=== PATIENT | female | born 1965 | race Caucasian/White ===

== ENCOUNTER 2020-06-17 17:26 | Inpatient (IN) | payer OTHER ==
[~2020-06-17] VITALS: Ht 170.2 cm; Wt 114.8 kg
[2020-06-17 17:29] VITALS: BP 177/111
[2020-06-17 18:02] LABS: ABSOLUTE NEUTROPHILS 6.6 thou/uL (1.4-8.2); BASOPHILS 0.6 % (0.0-2.0); EOSINOPHILS 1.3 % (0.0-3.0); HEMATOCRIT 40.4 % (37.0-47.0); HEMOGLOBIN 13.7 gm/dL (12.0-15.0); LYMPHOCYTES 21.7 % (24.0-44.0); MCH 30.2 pg (26.0-34.0); MCV 89.1 fL (80.0-100.0); MONOCYTES 5.7 % (1.0-8.0); PLATELET COUNT 232 thou/uL (150-400); POLYS 70.7 % (36.0-66.0); RBC 4.54 mil/uL (4.20-5.00); RDW 13.3 % (10.5-14.5); WBC 9.3 thou/uL (4.0-11.0)
[2020-06-17 18:15] LABS: APTT 25.1 Seconds (24.5-32.8); INR 0.95; PROTIME 10.4 Seconds (9.3-11.4)
[2020-06-17 18:33] LABS: ANION GAP 10 mmol/L (7-16); BUN 14 mg/dL (7-18); CALCIUM 9.1 mg/dL (8.5-10.1); CHLORIDE 110 mmol/L (98-107); CO2 25 mmol/L (21-32); CREATININE 0.8 mg/dL (0.6-1.0); GLUCOSE 103 mg/dL (74-106); POTASSIUM 3.7 mmol/L (3.5-5.1); SODIUM 145 mmol/L (136-145)
[2020-06-17 18:43] LABS: ALBUMIN 3.4 g/dL (3.4-5.0); SGOT 14 U/L (15-37); SGPT 20 U/L (14-59); TOTAL BILIRUBIN 0.4 mg/dL (0.2-1.0); TOTAL PROTEIN 7.1 g/dL (6.4-8.2); TROPONIN-I <0.06 ng/mL (<0.06)
[2020-06-17 19:46] LABS: URINE BILIRUBIN NEGATIVE (Negative); URINE BLOOD TRACE (Negative); URINE CLARITY CLEAR; URINE COLOR YELLOW; URINE GLUCOSE-RANDOM* NEGATIVE (Negative); URINE KETONES NEGATIVE (Negative); URINE LEUKOCYTES-REFLEX NEGATIVE (Negative); URINE NITRITE-REFLEX NEGATIVE (Negative); URINE PROTEIN (DIPSTICK) NEGATIVE (Negative); URINE UROBILINOGEN 0.2 E.U./dl (0.2-1.0)
[2020-06-17 19:54] LABS: AMP/METHAMP Negative (Negative); BARBITURATES Negative (Negative); BENZODIAZEPINES Negative (Negative); COCAINE Negative (Negative); METHADONE Negative (Negative); OPIATES Negative (Negative); PCP Negative (Negative)
[2020-06-17 20:25] VITALS: BP 160/99
--- NOTE | 2020-06-17 20:30 | NUR ---
Attempted report to [facility] [place] nurse. Reports will call back.
[2020-06-17 20:41] VITALS: BP 157/94
[2020-06-17 21:43] VITALS: BP 136/85
[2020-06-17 21:48] LABS: CHOLESTEROL 189 mg/dL (<200); HDL CHOLESTEROL 53 mg/dL (>40); LDL CHOLESTEROL 113 mg/dL (<100); TC:HDL 3.6 Ratio (Not establshd); TRIGLYCERIDE 119 mg/dL (<150); VLDL 24 mg/dL (<40)
[2020-06-17 21:49] LABS: SERUM ASSESSMENT Clear
--- NOTE | 2020-06-17 22:56 | NUR ---
PT ADMITTED FROM HOME THROUGH ED. PT REPORTED THURSDAY SHE HAD PROBLEMS WITH WORD FINDING, L EYE HEADACHE AND R EYE DOUBLE VISION. PT STATED SHE TOOK ONE OF HER BOYFRIENDS LISINOPRIL PILLS (SHE HAD PREVIOUSLY BEEN PRESCRIBED THEM 3YRS AGO) AND WENT TO SLEEP AND AWAKENED WITH NO PROBLEMS. LATER TODAY SHE WENT TO HER MOTHERS AND SHE HAD PROBLEMS WITH WORDFINDING AND HER BOYFRIEND SAID SHE WAS GOING TO THE ED. PT REPORTED RECENT INCREASE IN STRESS. PT DONATES PLASMA AND WAS HAVING HER BP CHECKED THERE UP TO 2 MONTHS AGO, SHE STATED IT HAD BEEN WNL. PT HAD ELEVATED BP IN ED. PT SEEN BY PROVIDER, [facility] COMPLETED O, PT INFORMED MRI SHOWED OLD CVA. PT PROVIDED MRI SCREEN TO COMPLETE. NEUROLOGY ROUTINE CONSULT PLACED. PT RESTING IN BED AND VERBALIZED UNDERSTANDING TO CALL FOR ASSISTANCE PRIOR TO AMBULATION.
[2020-06-18 02:34] VITALS: BP 123/73
--- NOTE | 2020-06-18 07:03 | EKG ---
[address] [place] [address] ELECTROCARDIOGRAM REPORT Name: MILEY HERNANDEZ Room #: 358-P ADM IN M.R.#: [id number] Admission: 06/17/20 Attend Phys: Eunice Claros MD Discharge: Date of : 67 Report #: [id number] [facility] ED Test Date: 2020-06-17 Test Time: 17:58:33 Pat Name: MILEY HERNANDEZ Department: Room: 358 Gender: F Sign Fabricator: leena : 1965 Requested By: Santosh Del Rosario Order Number: [id number] MD: Rip Gordon Measurements Intervals [place] Rate: 79 P: 37 OR: 172 QRS: -37 QRSD: 98 T: 22 QT: 390 QTc: 448 Interpretive Statements Sinus rhythm Abnormal R-wave progression, late transition Left ventricular hypertrophy No previous ECG available for comparison Electronically Signed On 06-18-2020 7:03:26 CDT by Rip Gordon [email or web address] <ELECTRONICALLY SIGNED> By: Rip Gordon MD, [facility] 06/18/20 0703 [id number] Rip Gordon MD, FACC /EPI
[2020-06-18 07:10] VITALS: BP 129/85
[2020-06-18 11:11] VITALS: BP 126/91
[2020-06-18 11:21] VITALS: BP 158/68
[2020-06-18] MEDS ORDERED: ADULT LOW DOSE81 MG PO (12:05)
[2020-06-18] MEDS ORDERED: LISINOPRIL20 MG PO (12:05)
[2020-06-18] MEDS ORDERED: LIPITOR 20 MG T20 M1 PO (12:10)
--- NOTE | 2020-06-18 13:36 | 2DMMODE ---
[facility] [place] [address] 2 D/M-MODE ECHOCARDIOGRAM Name: MILEY HERNANDEZ Room #: 358-P ADM IN M.R.#: [id number] Admission: 06/17/20 Attend Phys: Sophia Molina MD Discharge: Date of : 67 Report #: [id number] THIS REPORT FOR: cc: FAM - No family physician/PCP FAM - No family physician/PCP Victor Manuel Pollock MD ~ APPROVED REPORT Study performed: 06/18/2020 11:40:22 EXAM: Comprehensive 2D, Doppler, and color-flow Echocardiogram Patient Location: Bedside Room #: 358 BSA: 2.24 HR: 70 bpm BP: 129/85 mmHg Rhythm: NSR Other Information Study Quality: Adequate Indications CVA/TIA Hypertension/HDD Echo Enhancing Agent Indication: Rule out thrombus Agent(s) / Amount(s) Used: Agitated Saline 6 cc 2D Dimensions RVDd: 34.69 mm IVSd: 12.14 (7-11mm) LVOT Diam: 18.65 (18-24mm) LVDd: 42.26 mm PWd: 13.15 (7-11mm) Ascending Ao: 38.08 (22-36mm) LVDs: 30.06 (25-40mm) Aortic Root: 33.90 mm IVC: 20.00 mm Volumes Left Atrial Volume (Systole) Single Plane 4CH: 43.53 mL Single Plane 2CH: 85.69 mL LA ESV Index: 29.00 mL/m2 Aortic Valve [facility] [address] [address] 2 D/M-MODE ECHOCARDIOGRAM Name: HERNANDEZMILEY Room #: 358-P ADM IN M.R.#: [id number] Admission: 06/17/20 Attend Phys: Mandy Savage Discharge: Date of : 67 Report #: [id number] Peak Sj.: 1.78 m/s AO Peak Gr.: 12.74 mmHg LVOT Max P.23 mmHg LVOT Max V: 1.14 m/s LOUISA Vmax: 1.75 cm2 AI Vmax: 4.65 m/s AI [place]: 2.16 m/s2 AI PHT: 632.77 ms Mitral Valve E/A Ratio: 1.4 MV Decel. Time: 227.47 ms MV E Max Sj.: 0.83 m/s MV A Sj.: 0.60 m/s MV PHT: 65.97 ms IVRT: 96.89 ms Pulmonary Valve PV Peak Sj.: 0.83 m/s PV Peak Gr.: 2.75 mmHg Pulmonary Vein P Vein S: 0.39 m/s P Vein A: 0.33 m/s P Vein D: 0.30 m/s P Vein A Dur.: 96.9 msec P Vein S/D Ratio: 1.30 Tricuspid Valve TR Peak Sj.: 2.14 m/s RAP Estimate: 5.00 mmHg TR Peak Gr.: 18.32 mmHg PA Pressure: 23.00 mmHg Left Ventricle The left ventricle is normal size. There is normal LV segmental wall motion. Mild concentric left ventricular hypertrophy. The left ventricular systolic function is normal. The left ventricular ejection fraction is within the normal range. LVEF is 60-65%. Right Ventricle The right ventricle is normal size. The right ventricular systolic function is normal. Atria The left atrium size is normal. Injection of bubbles documented no interatrial shunt. The right atrium size is normal. Aortic Valve The aortic valve is normal in structure. Mild to moderate aortic regurgitation. There is no aortic valvular stenosis. [facility] [address] [place] [address] 2 D/M-MODE ECHOCARDIOGRAM Name: MILEY HERNANDEZ Room #: 358-P [facility] IN .R.#: [id number] Admission: 06/17/20 Attend Phys: Mandy Savage Discharge: Date of : 67 Report #: [id number] Mitral Valve The mitral valve is normal in structure. There is no mitral valve regurgitation noted. No evidence of mitral valve stenosis. Tricuspid Valve The tricuspid valve is normal in structure. Trace tricuspid regurgitation. PAP is estimated at 23 mmHg. Pulmonic Valve Pulmonic valve is not well visualized. Trace to mild pulmonic regurgitation. Great Vessels The aortic root is normal in size. IVC is normal in size and collapses >50% with inspiration. Pericardium There is no pericardial effusion. <Conclusion> The left ventricle is normal size. Mild concentric left ventricular hypertrophy. The left ventricular systolic function is normal. The right ventricle is normal size. The left atrium size is normal. Injection of bubbles documented no interatrial shunt. Mild to moderate aortic regurgitation. There is no mitral valve regurgitation noted. Trace tricuspid regurgitation. PAP is estimated at 23 mmHg. <ELECTRONICALLY SIGNED> By: Victor Manuel Pollock MD 06/18/20 1336 1336 133 Victor Manuel Pollock MD /INF
[2020-06-18 15:09] VITALS: BP 136/79
--- NOTE | 2020-06-18 15:36 | NUR ---
INITIAL ASSESSMENT: Received consult. SW reviewed chart and spoke with nursing and attending physician. Pt was admitted from home due to HTN/TIA. Neuro consulted. Pt will likely discharge home later today. [employer] to follow up with pt regarding Medicaid application/financial assistance. SW met with pt and s/o at bedside. Introduced role of SW. Pt is alert/orientated x 4. Pt report she lives at home with her mother. Prior to admission, pt was independent with ADLs. No use of DME. Pt does not have a PCP. Pt agreeable with receiving info regarding safety net clinics. Pt will have transportation home and denies having any discharge needs. SW left Health Resource Guide on pt's chart to be provided to pt at time of discharge. No further SW needs identified at this time, but is available to assist should needs arise.
[2020-06-18 19:12] VITALS: BP 148/94
[2020-06-18 23:06] LABS: GLYCOHEMOGLOBIN (HGB A1C) 5.5 % (4.8-5.6)
[2020-06-19 03:35] VITALS: BP 134/83
--- NOTE | 2020-06-19 05:57 | NUR ---
PT PROGRESSING TOWARDS DC GOALS. UP AD ROSIE, VSS, AND PT HAD NO COMPLAINTS. PT SLEPT COMFORTABLY OVERNIGHT. CALL LIGHT WITHIN REACH.
[2020-06-19 07:22] VITALS: BP 156/101
[2020-06-19 08:56] VITALS: BP 153/97
[2020-06-19] MEDS ORDERED: ASPIR-TRIN325 MG PO (11:40)
[2020-06-19 12:28] VITALS: BP 153/97
--- NOTE | 2020-06-19 14:42 | NUR ---
DISCHARGE NOTE: SW reviewed chart and spoke with nursing and attending physician. Pt is medically stable to discharge home today. Pt had MRI earlier today. Pt has Health Resource Guide to establish primary care after discharge. Pt's friend at bedside will provide transportation home. No additional SW needs identified at this time, but is available to assist should needs arise.
[2020-06-19] MEDS ORDERED: CLONIDINE HCL0.1 MG PO (14:56)
--- NOTE | 2020-06-19 14:59 | NUR ---
PT DISCHARGED HOME...FOLLOW UP TO BE SCHEDULED W A PCP AND NEUROLOGIST.. PT REPORTS MISSING A BRA AND A ELENA COLORED TOP FROM ADMIT. REPORTS HAVING ITEMS ON IN ED GOING TO CT SCAN AND RETURNING TO 3W IN A GOWN. DAVID LOPEZ NOTIFIED OF ITEMS.
== END 2020-06-19 14:54 | disposition home or self-care (01) | DRG 69 ==
LOC: ER 17:26 → EROBS 20:17 → 3W 20:17
PROVIDERS: Emergency Medicine; Nurse Practitioner Family; ADMIT Hospitalist; ATTEND Hospitalist
DX: G45.9 Transient cerebral ischemic attack, unspecified (principal); R47.01 Aphasia; I16.1 Hypertensive emergency; I10 Essential (primary) hypertension; E78.5 Hyperlipidemia, unspecified; Z83.3 Family history of diabetes mellitus; Z82.49 Family history of ischemic heart disease and other diseases of the circulatory system; Z80.8 Family history of malignant neoplasm of other organs or systems; Z91.14 Patient's other noncompliance with medication regimen
CPT/HCPCS: 10879